=== PATIENT | female | born 1965 | race Caucasian/White ===

== ENCOUNTER 2023-12-01 16:09 | Emergency (ER) | payer OTHER ==
[~2023-12-01] VITALS: Ht 167.6 cm; Wt 64.4 kg
[2023-12-01 16:09] VITALS: BP 137/96; PULSE 75; RESP 20; TEMP 98.1; O2SAT 97
[2023-12-01] MEDS ORDERED: MORPHINE SULFATE ONE (16:32)
[2023-12-01] MEDS: MORPHINE SULFATE IM STA (16:36)
[2023-12-01 16:54] VITALS: BP 130/88; PULSE 77; RESP 18; O2SAT 98
== END 2023-12-01 16:58 | disposition home or self-care (01) ==
LOC: ER 16:09
DX: S49.91XA Unspecified injury of right shoulder and upper arm, initial encounter (principal); I10 Essential (primary) hypertension; W01.0XXA Fall on same level from slipping, tripping and stumbling without subsequent striking against object, initial encounter; Y93.89 Activity, other specified; Y92.89 Other specified places as the place of occurrence of the external cause; Y99.8 Other external cause status
CPT/HCPCS: 96372; 99284; 73060-RT